=== PATIENT | female | born 1970 | race Caucasian/White ===

== ENCOUNTER 2017-12-16 10:50 | Emergency (ER) | payer SELFPAY ==
[~2017-12-16] VITALS: Ht 162.6 cm; Wt 70.0 kg
[~2017-12-16 10:50] MED LIST: CYCL5TAB PO; MEDR4PAK3 PO; Z.0.NO CURRENT MEDS
[2017-12-16 10:55] VITALS: BP 170/100; PULSE 100; RESP 17; TEMP 97.8; O2SAT 99
[2017-12-16] MEDS ORDERED: oxyCODONE/ACETAMINOPHEN 5 MG/325 MG TAB PO ONE (11:30)
--- NOTE | 2017-12-16 12:02 | PD ---
HPI Chief Complaint: Skin Problem Time Seen by Provider: 10:58 Travel History International Travel<30 days: No Contact w/Intl Traveler<30days: No Traveled to known affect area: No History of Present Illness HPI 47-year-old female arrives in complains of left arm pain. 6 days of pain is reported. Insomnia due to pain is reported. There is a tight quality. No traumatic injury. The patient reports pain starting in the region of the middle humerus with radiation to the left shoulder. No similar episode previously. Pain is worse with palpation and ROM. PFSH Past Medical History Diminished Hearing: No Immunizations Current: No ?: Not Past Surgical History Abdominal Surgery: Yes (ENDROMETRITIS 10 YEARS AGO) Gynecologic Surgery: Yes (ENDOMETRIOSIS) Social History Alcohol Use: No Tobacco Use: Yes (1 PPD ) Substance Use: No Allergies-Medications (Allergen,Severity, Reaction): Coded Allergies: No Known Allergies (Verified Adverse Reaction, Unknown, 12/16/17) Reported Meds & Prescriptions Reported Meds & Active Scripts Active Ibuprofen 600 Mg Tab 600 Mg PO Q8HR PRN 10 Days Prednisone 20 Mg Tab 40 Mg PO DAILY 3 Days Take 40 mg (2 tablets) daily for 5 days Tramadol (Tramadol HCl) 50 Mg Tab 100 Mg PO Q6H PRN Review of Systems Except as stated in HPI: all other systems reviewed are Neg General / Constitutional: No: Fever Physical Exam Narrative GENERAL: 47 yo F, WNWD, NAD Vital Signs Date Time Temp Pulse Resp B/P (MAP) Pulse Ox O2 Delivery O2 Flow Rate FiO2 12/16/17 10:55 97.8 100 17 170/100 (123) 99 SKIN: Warm and dry. HEAD: Atraumatic. Normocephalic. EYES: Pupils equal and round. No scleral icterus. No injection or drainage. ENT: No nasal bleeding or discharge. Mucous membranes pink and moist. NECK: Trachea midline. No JVD. CARDIOVASCULAR: Regular rate and rhythm. RESPIRATORY: No accessory muscle use. Clear to auscultation. Breath sounds equal bilaterally. GASTROINTESTINAL: Abdomen soft, non-tender, nondistended. Hepatic and splenic margins not palpable. MUSCULOSKELETAL: Tenderness about the lateral aspect of the midshaft humerus without gross deformity involving the bone or soft tissue. The skin appears normal and there is no palpable deformity involving the left arm. Range of motion of left arm at the shoulder is limited due to pain. There is intact handgrip. 2+ radial artery pulse bilaterally. NEUROLOGICAL: Awake and alert. No obvious cranial nerve deficits. Motor grossly within normal limits. Five out of 5 muscle strength in the arms and legs. Normal speech. PSYCHIATRIC: Appropriate mood and affect; insight and judgment normal. Data Data Last Documented VS Vital Signs Date Time Temp Pulse Resp B/P (MAP) Pulse Ox O2 Delivery O2 Flow Rate FiO2 12/16/17 10:55 97.8 100 17 170/100 (123) 99 Orders Orders Oxycodone-Acetamin 5-325 Mg (Percocet (12/16/17 11:30) Us Arm Venous Doppler (12/16/17 ) Basic Metabolic Panel (Bmp) (12/16/17 11:19) Complete Blood Count With Diff (12/16/17 11:19) Iv Access Insert/Monitor (12/16/17 11:19) Humerus (Min 2vws) (12/16/17 ) Prednisone (Deltasone) (12/16/17 13:45) Ed Discharge Order (12/16/17 13:36) Labs Laboratory Tests Test 12/16/17 11:40 White Blood Count 8.9 TH/MM3 Red Blood Count 4.72 MIL/MM3 Hemoglobin 14.9 GM/DL Hematocrit 43.8 % Mean Corpuscular Volume 92.8 FL Mean Corpuscular Hemoglobin 31.6 PG Mean Corpuscular Hemoglobin Concent 34.1 % Red Cell Distribution Width 13.5 % Platelet Count 309 TH/MM3 Mean Platelet Volume 7.7 FL Neutrophils (%) (Auto) 67.4 % Lymphocytes (%) (Auto) 22.9 % Monocytes (%) (Auto) 5.4 % Eosinophils (%) (Auto) 3.6 % Basophils (%) (Auto) 0.7 % Neutrophils # (Auto) 6.0 TH/MM3 Lymphocytes # (Auto) 2.0 TH/MM3 Monocytes # (Auto) 0.5 TH/MM3 Eosinophils # (Auto) 0.3 TH/MM3 Basophils # (Auto) 0.1 TH/MM3 CBC Comment DIFF FINAL Differential Comment Blood Urea Nitrogen 12 MG/DL Creatinine 0.83 MG/DL Random Glucose 82 MG/DL Calcium Level 9.2 MG/DL Sodium Level 141 MEQ/L Potassium Level 4.0 MEQ/L Chloride Level 110 MEQ/L Carbon Dioxide Level 23.5 MEQ/L Anion Gap 8 MEQ/L Estimat Glomerular Filtration Rate 74 ML/MIN MDM Medical Decision Making Medical Screen Exam Complete: Yes Emergency Medical Condition: Yes Medical Record Reviewed: Yes Differential Diagnosis Cellulitis, abscess, tumor, inflammatory response Narrative Course CBC & BMP Diagram 12/16/17 11:40 Calcium Level 9.2 Last Impressions Upper Extremity Ultrasound 12/16/17 0000 Signed Impressions: Service Date/Time: Saturday, December 16, 2017 12:21 - CONCLUSION: Normal examination. Emile Maguire MD Humerus X-Ray 12/16/17 0000 Signed Impressions: Service Date/Time: Saturday, December 16, 2017 12:08 - CONCLUSION: 1. No acute findings. Ossification adjacent to the greater tuberosity could be related to some calcific bursitis or tendinopathy or prior trauma. Emile Maguire MD results d/w patient pain controlled here w percocet x 2 return precautions discussed Diagnosis Primary Impression: Bursitis of deltoid Qualified Codes: M75.52 - Bursitis of left shoulder Additional Impression: Bursitis of left elbow Qualified Codes: M70.32 - Other bursitis of elbow, left elbow Referrals: [facility] MD call for appointment Med/Other Pt SpecificInfo: Prescription(s) given Scripts Ibuprofen (Ibuprofen) 600 Mg Tab 600 MG PO Q8HR Y for PAIN for 10 Days, TAB 0 Refills Prov: Cedric Edwards MD 12/16/17 Prednisone (Prednisone) 20 Mg Tab 40 MG PO DAILY for 3 Days, #6 TAB 0 Refills Take 40 mg (2 tablets) daily for 5 days Prov: Cedric Edwards MD 12/16/17 Tramadol (Tramadol) 50 Mg Tab 100 MG PO Q6H Y for PAIN, #20 TAB 0 Refills Prov: Cedric Edwards MD 12/16/17 Disposition: DISCHARGE HOME Condition: Stable Cedric Edwards MD Dec 16, 2017 12:01
[2017-12-16 12:16] LABS: BASOPHIL # 0.1 TH/MM3 (0-0.2); BASOPHIL % 0.7 % (0.0-2.0); EOSINOPHIL # 0.3 TH/MM3 (0-0.4); EOSINOPHIL % 3.6 % (0.0-4.0); HEMATOCRIT 43.8 % (35.0-46.0); HEMOGLOBIN 14.9 GM/DL (11.6-15.3); LYMPH % 22.9 % (9.0-44.0); MEAN CELL VOLUME 92.8 FL (80.0-100.0); MEAN CORPUSCULAR HEMOGLOBIN 31.6 PG (27.0-34.0); MEAN CORPUSCULAR HGB CONC 34.1 % (32.0-36.0); MEAN PLATELET VOLUME 7.7 FL (7.0-11.0); MONO % 5.4 % (0.0-8.0); MONOCYTE # 0.5 TH/MM3 (0-0.9); NEUT % 67.4 % (16.0-70.0); PLATELET COUNT 309 TH/MM3 (150-450); RED BLOOD COUNT 4.72 MIL/MM3 (4.00-5.30); RED CELL DISTRIBUTION WIDTH 13.5 % (11.6-17.2); WHITE BLOOD COUNT 8.9 TH/MM3 (4.0-11.0)
[2017-12-16 12:34] LABS: BICARBONATE 23.5 MEQ/L (21.0-32.0); CALCIUM 9.2 MG/DL (8.5-10.1); CREATININE 0.83 MG/DL (0.50-1.00)
--- NOTE | 2017-12-16 12:51 | RADRPT ---
EXAM DATE/TIME: 12/16/2017 12:21 [facility] COMPARISON: No previous studies available for comparison. INDICATIONS : Left arm swelling and pain. MEDICAL HISTORY : Endometriosis. Tobacco use. SURGICAL HISTORY : Gynecologic surgery for endometriosis. ENCOUNTER: Initial ACUITY: 1 week PAIN SCORE: 5/10 LOCATION: Left arm. FINDINGS: There is spontaneous flow documented in the brachial, basilic, cephalic, axillary, and subclavian vei ns. The vessels are compressible and augmentation response is documented. No filling defects are se en. The flow is phasic with respiration. Direction of flow in the jugular vein is caudal. CONCLUSION: Normal examination. Emile Maguire MD on December 16, 2017 at 12:50 Board Certified Radiologist. This report was verified electronically.
--- NOTE | 2017-12-16 12:51 | RADRPT ---
EXAM DATE/TIME: 12/16/2017 12:08 [facility] COMPARISON: No previous studies available for comparison. INDICATIONS : Pain mid shaft left humerus, no known injury has soft tissue lump x 2 years, pain radiates into left shoulder,. MEDICAL HISTORY : None. SURGICAL HISTORY : None. ENCOUNTER: Initial ACUITY: >1 year PAIN SCORE: 8/10 LOCATION: Left shoulder. FINDINGS: Two view examination of the left humerus demonstrates no evidence of fracture or dislocation. Bony m ineralization is normal. The soft tissue structures are intact. CONCLUSION: 1. No acute findings. Ossification adjacent to the greater tuberosity could be related to some calcif ic bursitis or tendinopathy or prior trauma. Emile Maguire MD on December 16, 2017 at 12:48 Board Certified Radiologist. This report was verified electronically.
[2017-12-16] MEDS ORDERED: TRAM50TA PO (13:33)
[2017-12-16] MEDS ORDERED: IBUP-232 PO (13:38)
[2017-12-16] MEDS ORDERED: PRED20 PO (13:38)
[2017-12-16] MEDS ORDERED: predniSONE 20 MG TAB PO ONE (13:45)
== END 2017-12-16 14:23 | disposition home or self-care (01) ==
LOC: NEPD 10:50
DX: M75.52 Bursitis of left shoulder (principal); M70.32 Other bursitis of elbow, left elbow; F17.200 Nicotine dependence, unspecified, uncomplicated
CPT/HCPCS: 73060; 80048; 85025; 93971; 99285; J7512